=== PATIENT | female | born 1995 | race Caucasian/White ===

== ENCOUNTER 2017-07-27 21:44 | Emergency (ER) | payer OTHER ==
[~2017-07-27] VITALS: Ht 154.9 cm; Wt 55.0 kg
[2017-07-27 21:47] VITALS: BP 143/65; PULSE 83; RESP 15; TEMP 98.7; O2SAT 98
--- NOTE | 2017-07-27 22:00 | PD ---
HPI Chief Complaint: Laceration/Skin Injury Time Seen by Provider: 21:54 Travel History International Travel<30 days: No Contact w/Intl Traveler<30days: No Traveled to known affect area: No History of Present Illness HPI 22-year-old white female presents emergency department with a laceration to her left forearm while doing dishes tonight. Pain is minimal. She denies any numbness, tingling or weakness. Up-to-date with immunizations. No exacerbating or alleviating factors. PFSH Past Medical History Medical History: Denies Significant Hx Tetanus Vaccination: > 5 Years Influenza Vaccination: No ?: Not LMP: 07/27/17 Past Surgical History Surgical History: No Previous Surgery Social History Alcohol Use: No Tobacco Use: Yes (1 PPD) Substance Use: No Allergies-Medications (Allergen,Severity, Reaction): Coded Allergies: Penicillins (Verified Allergy, Unknown, HIVES, 07/27/17) Review of Systems General / Constitutional: No: Fever Eyes: No: Visual changes HENT: No: Headaches Cardiovascular: No: Chest Pain or Discomfort Respiratory: No: Shortness of Breath Gastrointestinal: No: Abdominal Pain Genitourinary: No: Dysuria Musculoskeletal: No: Pain Skin: No Rash Neurologic: No: Weakness Psychiatric: No: Depression Endocrine: No: Polydipsia Hematologic/Lymphatic: No: Easy Bruising Physical Exam Narrative GENERAL: This is a well-nourished, well-developed patient, in no apparent distress. SKIN: No rashes, ecchymoses or lesions. Warm and dry. 1.5 cm superficial laceration left distal forearm this goes just into the dermis. No subcutaneous injury. HEAD: Atraumatic. Normocephalic. EYES: PERRL, EOMI, no discharge or injection. No scleral icterus. EARS: Clear NOSE: Nasal turbinates appear normal. THROAT: Mucosa pink and moist. Airway patent. NECK: Trachea midline. supple, moves head freely. LUNGS: Clear to auscultation. CV: Regular in rhythm. ABDOMEN: Soft nontender. EXT: No clubbing cyanosis or edema. Data Data Last Documented VS Vital Signs Date Time Temp Pulse Resp B/P (MAP) Pulse Ox O2 Delivery O2 Flow Rate FiO2 07/27/17 21:47 98.7 83 15 143/65 (91) 98 Orders Orders Ed Discharge Order (07/27/17 21:56) MDM Medical Decision Making Medical Screen Exam Complete: Yes Emergency Medical Condition: Yes Medical Record Reviewed: Yes Differential Diagnosis MDM: High Differential diagnoses: Fracture, sprain, strain, dislocation, contusion, neurovascular injury Narrative Course Patient lacerations cleansed and Steri-Stripped by the nursing staff. Diagnosis Primary Impression: Left forearm laceration-nonsutured Patient Instructions: General Instructions Additional Instructions: Rest. Elevation. Keep clean and dry. Steri-Strip. Follow-up with primary care doctor in 1 week. Return to the ER for any problems. Med/Other Pt SpecificInfo: Wound Care Disposition: 01 DISCHARGE HOME Condition: Stable Luis Carlos Haines July 27, 2017 22:00
== END 2017-07-27 22:35 | disposition home or self-care (01) ==
LOC: NEPD 21:44
DX: S51.812A Laceration without foreign body of left forearm, initial encounter (principal); X58.XXXA Exposure to other specified factors, initial encounter; Y93.G1 Activity, food preparation and clean up
CPT/HCPCS: 99282